=== PATIENT | male | born 1965 | race Caucasian/White ===

== ENCOUNTER → 2020-07-09 06:56 | Outpatient (CLI) | payer OTHER, SELFPAY ==
--- NOTE | ~2020-07-09 | XR_ITS ---
XR cervical spine 4-5V 07/09/2020 07:18 Indication: Neck pain Procedure: 5 views of the cervical spine Comparison: No prior studies for comparison. Findings: There is straightening of cervical lordosis. There is mild disc narrowing and endplate dege nerative change at C5-6. No prevertebral soft tissue abnormality. There is mild multilevel uncinate h ypertrophy. Odontoid process within normal limits. Impression: 1: Mild cervical spondylosis. Reviewed, dictated and finalized at location A. RNED CASE INSPECTOR Impression: 1: Mild cervical spondylosis.
== END ==
PROVIDERS: PCP Nurse Practitioner; Visit Provider Nurse Practitioner
DX: M54.9 Dorsalgia, unspecified (principal); M47.812 Spondylosis without myelopathy or radiculopathy, cervical region
CPT/HCPCS: 72050

== ENCOUNTER 2021-05-21 12:12 | Emergency (ER) | payer OTHER, SELFPAY ==
--- NOTE | ~2021-05-21 | CT_ITS ---
EXAMINATION: CT abdomen pelvis w con EXAM DATE: 05/21/2021 14:28 INDICATION: Right lower quadrant pain. TECHNIQUE: Spiral CT of the abdomen and pelvis was performed following intravenous injection of 100 m L Omnipaque 350. Axial, coronal and sagittal images of the abdomen and pelvis were reviewed. The do se-length product (DLP) for this examination was 1653.44 mGy-cm. The exposure was tailored according to patient size (auto mA exposure control), and iterative reconstruction (ASIR) was used as addition al dose reduction technique. Comparison is made to prior examination from 05/22/2014. FINDINGS: The liver, spleen, adrenal glands and pancreas are unremarkable. Gallbladder is unremarkab le. No biliary obstruction. Portal and splenic veins are patent. Kidneys enhance symmetrically. T here is no hydronephrosis. Small bilateral inguinal fat-containing hernias. The prostate is unremark able. The bladder is unremarkable. There is no retroperitoneal or pelvic lymphadenopathy. The appendix is normal. The stomach and small bowel are unremarkable. There is expected amount of c olonic stool. No free intraperitoneal gas. The heart is normal in size. There are no pericardial or pleural effusions. The lung bases are unremarkable. There are no osteoblastic or osteolytic les ions identified. IMPRESSION: 1. No acute intra-abdominal findings. 2. Small inguinal fat-containing hernias. Reviewed, dictated and finalized at location A. SNAKER
[2021-05-21 12:14] VITALS: BP 132/85; PULSE 94; RESP 20; TEMP 36.6; O2SAT 98
[2021-05-21 13:33] LABS: Alanine Aminotransferase 23 U/L (4-50); Albumin Level 4.6 g/dL (3.5-5.1); Alkaline Phosphatase 73 U/L (38-126); Anion Gap 6 mmol/L (8-16); Aspartate Amino Transferase 22 U/L (17-59); Basophils Absolute Auto 0.1 K/mm3 (0.0-0.1); Basophils Percent Auto 0.5 % (0.2-1.2); Bilirubin,Total 0.7 mg/dL (0.2-1.3); Blood Urea Nitrogen 18 mg/dL (9-20); Calcium 9.4 mg/dL (8.4-10.2); Carbon Dioxide 30 mmol/L (22-30); Chloride 103 mmol/L (98-107); Eosinophils Absolute Auto 0.2 K/mm3 (0-0.3); Eosinophils Percent Auto 2.1 % (0-4.4); Estimated CRCL calculation 109 ml/min; Estimated Glomerular Filt Rate > 60; Glucose 98 mg/dL (65-110); Hemoglobin 19.7 g/dL (14.0-18.0); Immature Granulocyte Absolute 0.03 K/mm3 (0.00-0.031); Immature Granulocyte Percent A 0.3 % (0-0.5); Lipase 86 U/L (23-300); Lymphocytes Absolute Auto 2.66 K/mm3 (0.9-3.2); Lymphocytes Percent Auto 25.3 % (18.3-44.2); Mean Corpuscular HGB Conc 34.6 g/dl (32-36); Mean Corpuscular Hemoglobin 31.5 pg (26-34); Mean Corpuscular Volume 91.1 fl (80-100); Monocytes Absolute Auto 0.7 K/mm3 (0.1-0.6); Neutrophils Absolute Auto 6.8 K/mm3 (1.3-6.7); Neutrophils Percent Auto 64.8 % (45.5-73.1); Platelet Count Result 153 k/mm3 (150-375); Potassium 4.9 mmol/L (3.4-5.0); Red Blood Count 6.26 M/mm3 (4.6-6.20); Red Cell Distribution Width 13.3 % (11.5-14.5); Sodium 139 mmol/L (137-145); White Blood Count 10.5 K/mm3 (4.5-10.0)
[2021-05-21 13:48] LABS: Add Urine Microscopic? YES; Appearance Urine Clear (Clear); Bilirubin Urine Negative (Negative); Blood Urine Negative (Negative); Color Urine Yellow (Yellow); Glucose Urine UA Negative (Negative); Ketones Urine Negative (Negative); Leukocyte Esterase Ur Negative LEU/UL (Negative); Mucus Urine Rare /lpf; Nitrate Urine Negative (Negative); Protein Urine Negative (Negative); Specific Grav Ur 1.027 (1.001-1.035); Squamous Epithelial Cell Urine Rare /hpf (Few); Urobilinogen Urine Negative mg/dL (<2.0); WBC Urine 0-3 /hpf
--- NOTE | 2021-05-21 13:58 | ED.ABDPAIN ---
HPI - Abdominal Pain General Chief Complaint: Abdominal Pain Stated Complaint: lower right abd pain Time Seen by Provider: 05/21/21 13:57 Source: patient Mode of arrival: ambulatory Limitations: no limitations History of Present Illness HPI narrative: Patient is a 56-year-old male complaining of right lower quadrant pain, 6 out of 10, intermittent, nonradiating started approximately 2 weeks ago. Patient denies any chest pain, shortness of breath, nausea, vomiting, diarrhea, urinary symptoms, fever or chills. Related Data Home Medications Medication Instructions Recorded Confirmed lisinopril 40 mg tablet 40 mg PO DAILY 07/15/20 simvastatin 10 mg tablet 10 mg PO DAILY 07/15/20 Allergies Allergy/AdvReac Type Severity Reaction Status Date / Time No Known Allergies Allergy Mild Verified 05/21/21 13:28 Review of Systems Review of Systems: All systems reviewed & are unremarkable except as noted in HPI and below Constitutional: Constitutional: Denies body ache(s), Denies chills, Denies excessive sweating, Denies fatigue, Denies fever(s), Denies headache(s), Denies lethargy, Denies malaise, Denies weakness and Denies weight loss Eyes: Eyes: Denies blurry vision, Denies change in vision and Denies loss of vision ENT: Denies dizziness, Denies ear discharge, Denies headache(s), Denies lip swelling, Denies epistaxis, Denies nasal congestion, Denies neck pain, Denies throat swelling and Denies tongue swelling Cardiovascular: Cardiovascular: Denies chest pain, Denies chest pain at rest, Denies chest pain with activity, Denies diaphoresis, Denies rapid heart rate, Denies edema, Denies irregular heart rhythm, Denies lightheadedness, Denies palpitations, Denies dyspnea and Denies dyspnea on exertion Respiratory: Respiratory: Denies chest congestion, Denies cough, Denies hemoptysis, Denies dyspnea and Denies dyspnea on exertion Gastrointestinal: Gastrointestinal: Denies melena, Denies hematochezia, Denies diarrhea, Denies nausea, Denies vomiting and Denies hematemesis Musculoskeletal: Musculoskeletal: Denies abnormal gait, Denies deformity, Denies joint swelling, Denies limited range of motion, Denies neck pain and Denies numbness Neurologic: Denies Abnormal speech present, Denies abnormal gait, Denies confusion, Denies dizziness, Denies headache(s), Denies focal weakness, Denies loss of vision, Denies numbness, Denies Other visual disturbances, Denies Sensory deficit (Neuro) and Denies weakness Psychiatric: Psychiatric: Denies confusion, Denies depression, Denies auditory hallucinations, Denies homicidal ideation and Denies suicidal ideation Endocrine: Endocrine: Denies cold intolerance, Denies excessive sweating, Denies fatigue, Denies heat intolerance and Denies palpitations Hematologic/Lymphatic: Hematologic/Lymphatic: Denies easy bleeding and Denies easy bruising Allergic/Immunologic: Allergic/Immunologic: Denies lip swelling, Denies throat swelling and Denies tongue swelling PMFSH Family History Family History (System 07/14/20 @ 08:51 by Yvrose Trinidad) Mother Hypertension Family history of diabetes mellitus in first degree relative Father Hypertension Cerebrovascular accident Other Asthma Family history of cardiovascular disease Social History Social History Smoking status: Never smoker Alcohol intake: never Comments Past medical history: Hypertension, hyperlipidemia Social history: Non-smoker no EtOH or drug use Exam Const: General: cooperative, healthy appearing, comfortable, no acute distress, well developed, alert and awake; No confusion Orientation/consciousness: oriented to person, oriented to place, oriented to time, patient oriented x3 and No confusion Limitations: no limitations HENMT: Head: normal to inspection, normocephalic and atraumatic Ears: hearing grossly normal bilaterally, TM normal on the right and TM normal on the left Gene
--- NOTE | 2021-05-21 14:20 | PC.NURSE ---
Pt to CT.
--- NOTE | 2021-05-21 14:29 | PC.NURSE ---
Pt returned from CT. No change in pt condition noted.
--- NOTE | 2021-05-21 14:56 | PC.NURSE ---
Dr. Villafana at bedside for pt assessment.
[2021-05-21] MEDS: KETOROLAC 30 MG/ML VIAL (*BKC) IV PUSH (15:53)
[2021-05-21 16:45] VITALS: BP 134/99; PULSE 95; RESP 16; TEMP 36.6; O2SAT 95
== END 2021-05-21 16:46 | disposition home or self-care (01) ==
PROVIDERS: Emergency Provider Emergency Medicine; PCP Family Medicine
DX: R10.31 Right lower quadrant pain (principal); I10 Essential (primary) hypertension; E78.5 Hyperlipidemia, unspecified; K40.90 Unilateral inguinal hernia, without obstruction or gangrene, not specified as recurrent
CPT/HCPCS: 36415; 74177; 80053; 81001; 83690; 85025; 96374; 99284; J1885; Q9967

== ENCOUNTER 2021-09-02 16:28 | Emergency (ER) | payer OTHER, SELFPAY ==
--- NOTE | ~2021-09-02 | XR_ITS ---
EXAMINATION: XR chest 2V 09/02/2021 17:15 INDICATION: Chest pain and shortness of breath PROCEDURE: 2 view chest COMPARISON: No prior studies for comparison. FINDINGS: The lungs are clear. The cardiomediastinal silhouette is within normal limits. There are no pleural effusions. There is no pneumothorax suspected. IMPRESSION: 1: NO ACUTE CARDIOPULMONARY DISEASE. Reviewed, dictated and finalized at location A. TER ADVOCATE
--- NOTE | 2021-09-02 16:29 | ECG_ITS ---
Measurements Intervals [place] Rate: 91 P: 12 [place]: 181 QRS: -14 QRSD: 92 T: 14 QT: 317 QTc: 390 Interpretive Statements SINUS RHYTHM MINIMAL VOLTAGE CRITERIA FOR LVH, CONSIDER NORMAL VARIANT [MEETS CRITERIA IN ONE OF: R(aVL), S(V1), R(V5), R(V5/V6)+S(V1)] NO PREVIOUS ECG AVAILABLE FOR COMPARISON Borderline ECG Electronically Signed On 09-03-2021 14:18:03 EAR MUFF ASSEMBLER by aRghu Ramos M.D.
[2021-09-02 16:34] VITALS: BP 159/109; PULSE 93; RESP 18; TEMP 36.8; O2SAT 99
[2021-09-02 16:44] VITALS: PULSE 90; O2SAT 97
[2021-09-02 16:52] LABS: Basophils Percent Auto 0.3 % (0.2-1.2); Eosinophils Absolute Auto 0.2 K/mm3 (0-0.3); Hematocrit 53.5 % (42.0-52.0); Hemoglobin 18.6 g/dL (14.0-18.0); Immature Granulocyte Absolute 0.04 K/mm3 (0.00-0.031); Immature Granulocyte Percent A 0.4 % (0-0.5); Immature Platelet Fraction Pct 4.4 % (0.9-11.2); Lymphocytes Percent Auto 23.7 % (18.3-44.2); Mean Corpuscular HGB Conc 34.8 g/dl (32-36); Mean Corpuscular Hemoglobin 32.1 pg (26-34); Mean Corpuscular Volume 92.2 fl (80-100); Mean Platelet Volume 10.2 fl (7.4-10.4); Monocytes Absolute Auto 0.7 K/mm3 (0.1-0.6); Monocytes Percent Auto 7.1 % (2.6-8.5); Neutrophils Absolute Auto 6.8 K/mm3 (1.3-6.7); Neutrophils Percent Auto 66.5 % (45.5-73.1); Platelet Count Result 143 k/mm3 (150-375); Red Cell Distribution Width 13.9 % (11.5-14.5); White Blood Count 10.1 K/mm3 (4.5-10.0)
[2021-09-02 17:00] LABS: Alanine Aminotransferase 28 U/L (4-50); Albumin Level 4.5 g/dL (3.5-5.1); Alkaline Phosphatase 69 U/L (38-126); Anion Gap 7 mmol/L (8-16); Aspartate Amino Transferase 27 U/L (17-59); Bilirubin,Total 0.7 mg/dL (0.2-1.3); Blood Urea Nitrogen 17 mg/dL (9-20); Calcium 9.2 mg/dL (8.4-10.2); Carbon Dioxide 26 mmol/L (22-30); Chloride 106 mmol/L (98-107); Estimated CRCL calculation 121 ml/min; Estimated Glomerular Filt Rate > 60; Glucose 89 mg/dL (65-110); INR 1.1; Lipase 80 U/L (23-300); Partial Thromboplastin Time 27.3 SECONDS (22.3-36.8); Potassium 4.7 mmol/L (3.4-5.0); Prothrombin Time 13.5 Seconds (11.1-14.7); Sodium 139 mmol/L (137-145)
--- NOTE | 2021-09-02 17:10 | ED.CHESTPAIN ---
HPI - Chest Pain General Chief Complaint: Chest Pain <Nichol Charles PA-C - Last Filed: 09/02/21 21:25> Stated Complaint: Chest pain <Nichol Charles PA-C - Last Filed: 09/02/21 21:25> Time Seen by Provider: 09/02/21 16:57 <Nichol Charles PA-C - Last Filed: 09/02/21 21:25> Source: patient <LESA Winters Last Filed: 09/02/21 21:25> Mode of arrival: ambulatory <LESA Winters Last Filed: 09/02/21 21:25> Limitations: no limitations <Nichol Charles PA-C - Last Filed: 09/02/21 21:25> History of Present Illness HPI narrative: Patient is a 56-year-old male, with a past medical history of hypertension, hyperlipidemia, asthma, and sleep apnea, who presents to the ED with complaints of right upper chest pain. 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 He has not had any sharp pains since then, but reports feeling tight his upper chest bilaterally currently in the ED. 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 Patient denied having any diaphoresis, nausea, shortness of breath associated with the pain. He does mention that he occasionally has difficulty catching his breath due to his asthma. He uses his rescue inhaler when needed. Patient had a stress test 6-7 years ago, which he reports was normal. Patient denies any fever, chills, vomiting, abdominal pain, headache, back pain, BLE edema, or recent infectious symptoms. Patient took ASA prior to arrival. He has a history of erectile dysfunction and took Cialis yesterday. He was not given nitro in the ED. <Nichol Charles PA-C - Last Filed: 09/02/21 21:25> Related Data Home Medications: Home Medications Medication Instructions Recorded Confirmed lisinopril 40 mg tablet 40 mg PO DAILY 07/15/20 simvastatin 10 mg tablet 10 mg PO DAILY 07/15/20 pravastatin 20 mg PO DAILY 09/02/21 tadalafil mg 09/02/21 <Nichol Charles PA-C - Last Filed: 09/02/21 21:25> Allergies/Adverse Reactions: Allergies Allergy/AdvReac Type Severity Reaction Status Date / Time No Known Allergies Allergy Mild Verified 05/21/21 13:28 <Nichol Charles PA-C - Last Filed: 09/02/21 21:25> Review of Systems Review of Systems: CONSTITUTIONAL: Denies fever, chills, or sweats. ENT: Denies rhinorrhea, congestion, sore throat, or otalgia. CARDIOVASCULAR: Reports sharp right upper chest pain and tightness in bilateral upper chest. Denies palpitations or edema. RESPIRATORY: Denies cough or dyspnea. GASTROINTESTINAL: Denies abdominal pain, nausea, vomiting, or diarrhea. MUSCULOSKELETAL: Denies back pain, joint pain, or myalgia. NEUROLOGIC: Denies headache, numbness, or weakness. <Nichol Charles PA-C - Last Filed: 09/02/21 21:25> All systems reviewed & are unremarkable except as noted in HPI and below <Nichol Charles PA-C - Last Filed: 09/02/21 21:25> [facility] Past Medical History Medical History: Medical History Asthma Erectile dysfunction Hyperlipidemia Hypertension Sleep apnea with use of continuous positive airway pressure (CPAP) <Nichol Charles PA-C - Last Filed: 09/02/21 21:25> Surgical History Surgical History: Surgical History H/O knee surgery <Nichol Charles PA-C - Last Filed: 09/02/21 21:25> Family History Family History: Family History (System 07/14/20 @ 08:51 by Yvrose Trinidad) Mother Hypertension Family history of diabetes mellitus in first degree relative Father Hypertension Cerebrovascular accident Other Asthma Family history of cardiovascular disease <Nichol Charles PA-C - Last Filed: 09/02/21 21:25> Social History Social History: Social History (Reviewed 09/02/21 @ 17:16 by Nelly
[2021-09-02 17:12] LABS: Troponin I < 0.012 ng/mL (0.000-0.034)
[2021-09-02 17:58] VITALS: BP 155/94; PULSE 90; RESP 24; O2SAT 99
[2021-09-02 19:59] VITALS: BP 143/104; PULSE 85; RESP 18; O2SAT 99
[2021-09-02 20:04] LABS: Troponin I < 0.012 ng/mL (0.000-0.034)
[2021-09-02 20:57] VITALS: BP 151/91; PULSE 95; RESP 18; O2SAT 98
== END 2021-09-02 20:58 | disposition home or self-care (01) ==
PROVIDERS: General Practice; Emergency Provider Emergency Medicine
DX: R07.9 Chest pain, unspecified (principal); G47.30 Sleep apnea, unspecified; I10 Essential (primary) hypertension; E78.5 Hyperlipidemia, unspecified; J45.909 Unspecified asthma, uncomplicated
CPT/HCPCS: 36415; 71046; 80053; 83690; 84484; 85025; 85055; 85610; 85730; 93005; 99284

== ENCOUNTER 2022-10-28 13:13 | Emergency (ER) | payer OTHER, SELFPAY ==
[2022-10-28] VITALS (11 sets, daily range): BP systolic 139–170; BP diastolic 83–106; PULSE 83–96; RESP 14–20; TEMP 36.3; O2SAT 95–99
--- NOTE | ~2022-10-28 | CT_ITS ---
EXAMINATION: CT brain wo con DATE: 10/28/2022 14:45 INDICATION: Headache TECHNIQUE: Computed tomography (CT) of the head was performed without intravenous contrast. Sagittal and coronal reconstructions were performed. The mA was adjusted according to patient size. Iterative reconstruction technique was employed. The dose-length product was 605.33 mGy-cm. COMPARISON: None FINDINGS: No acute intracranial hemorrhage, acute infarction or abnormal extra axial fluid collection. Ventricl es are normal and symmetric. No mass/mass effect. Mucosal thickening in the right maxillary sinus. Th e orbits, paranasal sinuses and mastoid air cells are normal. IMPRESSION: 1. Normal brain. No acute intracranial process. Reviewed, dictated and finalized at location A.
--- NOTE | 2022-10-28 13:26 | ECG_ITS ---
Measurements Intervals [place] Rate: 85 P: 5 [place]: 181 QRS: -19 QRSD: 99 T: 13 QT: 335 QTc: 399 Interpretive Statements SINUS RHYTHM MODERATE VOLTAGE CRITERIA FOR LVH, CONSIDER NORMAL VARIANT [MEETS CRITERIA IN ONE OF: R(aVL), S(V1), R(V5), R(V5/V6)+S(V1)] COMPARED TO ECG 09/02/2021 16:36:06 NO SIGNIFICANT CHANGES Electronically Signed On 10-29-2022 13:34:08 CDT by Anil Cronin M.D.
[2022-10-28 13:53] LABS: Basophils Percent Auto 0.3 % (0.2-1.2); Eosinophils Absolute Auto 0.2 K/mm3 (0-0.3); Hematocrit 52.7 % (42.0-52.0); Hemoglobin 18.1 g/dL (14.0-18.0); Immature Granulocyte Absolute 0.02 K/mm3 (0.00-0.031); Immature Granulocyte Percent A 0.2 % (0-0.5); Lymphocytes Percent Auto 23.1 % (18.3-44.2); Mean Corpuscular HGB Conc 34.3 g/dl (32-36); Mean Corpuscular Hemoglobin 31.2 pg (26-34); Mean Corpuscular Volume 90.9 fl (80-100); Mean Platelet Volume 10.4 fl (7.4-10.4); Monocytes Absolute Auto 0.8 K/mm3 (0.1-0.6); Neutrophils Absolute Auto 5.7 K/mm3 (1.3-6.7); Neutrophils Percent Auto 65.4 % (45.5-73.1); Platelet Count Result 127 k/mm3 (150-375); Red Cell Distribution Width 13.1 % (11.5-14.5); White Blood Count 8.7 K/mm3 (4.5-10.0)
[2022-10-28] MEDS: hydrALAZINE HCL 20 MG/ML VIAL 10 MG IV PUSH (14:15)
[2022-10-28 15:17] LABS: Alanine Aminotransferase 27 U/L (6-50); Albumin Level 4.3 g/dL (3.5-5.1); Alkaline Phosphatase 51 U/L (38-126); Anion Gap 7 mmol/L (8-16); Aspartate Amino Transferase 19 U/L (17-59); Bilirubin,Total 0.6 mg/dL (0.2-1.3); Blood Urea Nitrogen 16 mg/dL (9-20); Calcium 8.7 mg/dL (8.4-10.2); Carbon Dioxide 24 mmol/L (22-30); Chloride 107 mmol/L (98-107); Estimated CRCL calculation 139 ml/min; Estimated Glomerular Filt Rate > 60; Glucose 85 mg/dL (65-110); Potassium 4.1 mmol/L (3.4-5.0); Sodium 138 mmol/L (137-145)
--- NOTE | 2022-10-28 15:58 | ED.GENADULT ---
HPI - General Adult General Chief complaint: Recheck/Abnormal Lab/Rx Stated complaint: hypertension Time Seen by Provider: 10/28/22 13:50 History of Present Illness HPI narrative: 57-year-old male presented the emergency department for evaluation of high blood pressure. Patient states he has been irbesartan for the last 2 months. Patient had been taking lisinopril but had developed a cough from this. Patient went to a clinic for evaluation and was referred to the emergency department due to elevated blood pressure. Related Data Home Medications Medication Instructions Recorded Confirmed lisinopril 40 mg tablet 40 mg PO DAILY 07/15/20 06/29/22 pravastatin 20 mg tablet 20 mg PO DAILY 09/02/21 06/29/22 tadalafil 20 mg tablet mg 09/02/21 06/29/22 albuterol sulfate 90 mcg/actuation 1 puff inhalation Q4H PRN 06/29/22 06/29/22 aerosol inhaler bupropion HCl 300 mg 24 hr tablet, 300 mg PO QAM 06/29/22 06/29/22 extended release buspirone 10 mg tablet 10 mg PO BID 06/29/22 06/29/22 fenofibrate 50 mg capsule 50 mg PO DAILY 06/29/22 06/29/22 fluticasone propionate 115 2 puff inhalation Q12H 06/29/22 06/29/22 mcg-salmeterol 21 mcg/actuation HFA inhaler (Advair HFA) Allergies Allergy/AdvReac Type Severity Reaction Status Date / Time No Known Allergies Allergy Mild Verified 06/29/22 08:48 Review of Systems Review of Systems: All systems reviewed & are unremarkable except as noted in HPI and below PMFSH Past Medical History Medical History Asthma Erectile dysfunction Hyperlipidemia Hypertension Sleep apnea with use of continuous positive airway pressure (CPAP) Surgical History Surgical History H/O knee surgery Family History Family History Mother Hypertension Family history of diabetes mellitus in first degree relative Father Hypertension Cerebrovascular accident Other Asthma Family history of cardiovascular disease Social History Social History (Updated 06/29/22 @ 08:52 by Emily Gomez CMA) Smoking status: Never smoker Alcohol intake: never Lack of Transportation: No Lack of Food: Never True Current Housing: I Have Housing Concerned About Future Housing: No Difficulty Paying Gas/Electric Bills: No Difficulty Paying for Meds: No Currently Unemployed: No Education: High School Diploma/GED Difficulty w/ Childcare or Family Care: No Exam Narrative: APPEARANCE: Well appearing, no pain, no distress, well-nourished. HEAD: normocephalic, atraumatic. EYES: PERRLA/EOMI, conjunctivae clear. NOSE: Normal no drainage NECK: Supple. No adenopathy, no masses. RESPIRATORY: Airway patent, respirations nonlabored. Clear to auscultation bilaterally, no rales, rhonchi, wheezing. CARDIOVASCULAR: Regular rate and rhythm without murmurs rubs or gallops. ABDOMINAL: Soft, nontender, nondistended, normal bowel sounds MUSCULOSKELETAL: Moves all extremities. Strength/ROM intact, No edema, No calf tenderness. NEURO: Alert. Cranial nerves II through XII intact. Grossly intact SKIN: Warm, dry. Normal Color PSYCHIATRIC: Anxiety Course Course Emergency Course: 57-year-old male presented the ED for evaluation of hypertension. Patient was treated with IV hydralazine and did have an improvement of his blood pressure. Patient reports he no longer has headache. Patient denying any chest pain or shortness of breath. Patient was afebrile with no leukocytosis. Patient's electrolytes are within normal limits. Patient's head CT was negative. Patient's EKG showed no evidence of acute STEMI. Patient was encouraged of close follow-up with his primary care physician as scheduled on Sunday. Patient was also encouraged to follow a low-sodium diet and to avoid alcohol. Patient and family were comfortable with the plan for discha
== END 2022-10-28 16:23 | disposition home or self-care (01) ==
PROVIDERS: Emergency Provider Emergency Medicine; PCP Family Medicine Sports Medicine
DX: I10 Essential (primary) hypertension (principal); R51.9 Headache, unspecified; J45.909 Unspecified asthma, uncomplicated; E78.5 Hyperlipidemia, unspecified; G47.30 Sleep apnea, unspecified
CPT/HCPCS: 36415; 70450; 80053; 85025; 85055; 93005; 96374; 99284; J0360

== ENCOUNTER 2022-10-29 13:25 | Emergency (ER) | payer OTHER, SELFPAY ==
[2022-10-29] VITALS (18 sets, daily range): BP systolic 137–154; BP diastolic 87–102; PULSE 81–96; RESP 16–21; TEMP 36.5; O2SAT 92–100
--- NOTE | 2022-10-29 13:43 | ED.GENADULT ---
HPI - General Adult General Chief complaint: Recheck/Abnormal Lab/Rx Stated complaint: elevated bp Time Seen by Provider: 10/29/22 13:33 History of Present Illness HPI narrative: 57-year-old male with history of hypertension return to the emergency department for evaluation of increased anxiety and elevated blood pressure at home. Patient was evaluated in the emergency department yesterday and states he had increased anxiety and had been checking his blood pressure frequently over the course of the night. Patient does have follow-up with his primary care physician tomorrow. Patient reports he has had worsening anxiety. Patient's anxiety was treated in the emergency department. Related Data Home Medications Medication Instructions Recorded Confirmed lisinopril 40 mg tablet 40 mg PO DAILY 07/15/20 06/29/22 pravastatin 20 mg tablet 20 mg PO DAILY 09/02/21 06/29/22 tadalafil 20 mg tablet mg 09/02/21 06/29/22 albuterol sulfate 90 mcg/actuation 1 puff inhalation Q4H PRN 06/29/22 06/29/22 aerosol inhaler bupropion HCl 300 mg 24 hr tablet, 300 mg PO QAM 06/29/22 06/29/22 extended release buspirone 10 mg tablet 10 mg PO BID 06/29/22 06/29/22 fenofibrate 50 mg capsule 50 mg PO DAILY 06/29/22 06/29/22 fluticasone propionate 115 2 puff inhalation Q12H 06/29/22 06/29/22 mcg-salmeterol 21 mcg/actuation HFA inhaler (Advair HFA) Allergies Allergy/AdvReac Type Severity Reaction Status Date / Time No Known Allergies Allergy Mild Verified 10/29/22 13:25 Review of Systems Review of Systems: All systems reviewed & are unremarkable except as noted in HPI and below PMFSH Past Medical History Medical History Asthma Erectile dysfunction Hyperlipidemia Hypertension Sleep apnea with use of continuous positive airway pressure (CPAP) Surgical History Surgical History H/O knee surgery Family History Family History Mother Hypertension Family history of diabetes mellitus in first degree relative Father Hypertension Cerebrovascular accident Other Asthma Family history of cardiovascular disease Social History Social History (Updated 06/29/22 @ 08:52 by Emily Gomez [facility]) Smoking status: Never smoker Alcohol intake: never Lack of Transportation: No Lack of Food: Never True Current Housing: I Have Housing Concerned About Future Housing: No Difficulty Paying Gas/Electric Bills: No Difficulty Paying for Meds: No Currently Unemployed: No Education: High School Diploma/GED Difficulty w/ Childcare or Family Care: No Exam Narrative: APPEARANCE: Anxious appearing HEAD: normocephalic, atraumatic. EYES: PERRLA/EOMI, conjunctivae clear. NOSE: Normal no drainage NECK: Supple. No adenopathy, no masses. RESPIRATORY: Airway patent, respirations nonlabored. Clear to auscultation bilaterally, no rales, rhonchi, wheezing. CARDIOVASCULAR: Regular rate and rhythm without murmurs rubs or gallops. ABDOMINAL: Soft, nontender, nondistended, normal bowel sounds MUSCULOSKELETAL: Moves all extremities. Strength/ROM intact, No edema, No calf tenderness. NEURO: Alert. Cranial nerves II through XII intact. Grossly intact SKIN: Warm, dry. Normal Color PSYCHIATRIC: Very anxious Course Course Emergency Course: 57-year-old male history of hypertension anxiety presents emerged department for evaluation of both. Patient's blood pressure did improve while he was in the ED. Patient was treated with medications for anxiety and states this also did improve. Patient does have follow-up with his primary care physician tomorrow and he was encouraged to discuss both his blood pressure medications and his anxiety medications. Patient states he did have a decrease in his bupropion a few weeks ago and this may be worsening his anxiety. Patient an
--- NOTE | 2022-10-29 13:50 | PC.NURSE ---
Dr. Lozano at bedside to assess pt.
[2022-10-29] MEDS: LORazepam (*CRX) 1 MG TABLET 2 MG PO (14:03)
[2022-10-29] MEDS: KETOROLAC 30 MG/ML VIAL (*BKC) IM (16:49)
== END 2022-10-29 17:37 | disposition home or self-care (01) ==
PROVIDERS: Emergency Provider Emergency Medicine; PCP Family Medicine Sports Medicine
DX: F41.9 Anxiety disorder, unspecified (principal); I10 Essential (primary) hypertension
CPT/HCPCS: 96372; 99283; A9270; J1885

== ENCOUNTER 2023-01-05 11:05 | Outpatient (CLI) | payer OTHER, SELFPAY ==
[2023-01-05 11:25] LABS: Basophils Percent Auto 0.4 % (0.2-1.2); Eosinophils Absolute Auto 0.2 K/mm3 (0-0.3); Eosinophils Percent Auto 2.3 % (0-4.4); Hematocrit 50.5 % (42.0-52.0); Hemoglobin 17.5 g/dL (14.0-18.0); Immature Granulocyte Absolute 0.03 K/mm3 (0.00-0.031); Immature Granulocyte Percent A 0.4 % (0-0.5); Immature Platelet Fraction Pct 3.3 % (0.9-11.2); Lymphocytes Absolute Auto 1.99 K/mm3 (0.9-3.2); Lymphocytes Percent Auto 23.9 % (18.3-44.2); Mean Corpuscular HGB Conc 34.7 g/dl (32-36); Mean Corpuscular Hemoglobin 30.9 pg (26-34); Mean Corpuscular Volume 89.1 fl (80-100); Monocytes Absolute Auto 0.5 K/mm3 (0.1-0.6); Monocytes Percent Auto 6.5 % (2.6-8.5); Neutrophils Absolute Auto 5.5 K/mm3 (1.3-6.7); Neutrophils Percent Auto 66.5 % (45.5-73.1); Platelet Count Result 118 k/mm3 (150-375); Red Blood Count 5.67 M/mm3 (4.6-6.20); Red Cell Distribution Width 13.4 % (11.5-14.5); White Blood Count 8.3 K/mm3 (4.5-10.0)
[2023-01-05 12:24] LABS: Iron 119 ug/dL (49-181)
[2023-01-05 12:28] LABS: Alanine Aminotransferase 28 U/L (6-50); Albumin Level 4.2 g/dL (3.5-5.1); Alkaline Phosphatase 54 U/L (38-126); Anion Gap 6 mmol/L (8-16); Aspartate Amino Transferase 21 U/L (17-59); Bilirubin,Total 0.7 mg/dL (0.2-1.3); Blood Urea Nitrogen 16 mg/dL (9-20); Calcium 8.8 mg/dL (8.4-10.2); Carbon Dioxide 27 mmol/L (22-30); Chloride 107 mmol/L (98-107); Estimated Glomerular Filt Rate > 60; Glucose 120 mg/dL (65-110); Potassium 4.2 mmol/L (3.4-5.0); Sodium 140 mmol/L (137-145)
[2023-01-05 12:33] LABS: Percent Iron Saturation 28 % (20-50)
[2023-01-05 13:33] LABS: Folic Acid 18.8 ng/mL (2.76->20)
[2023-01-08 10:59] LABS: Erythropoietin (EPO) 15.6 mIU/mL (2.6-18.5)
[2023-01-09 12:43] LABS: Testosterone Free 91.2 pg/mL (35.0-155.0); Testosterone Total 339 ng/dL (250-1100)
== END 2023-01-05 11:06 | disposition home or self-care (01) ==
LOC: ANHLAB 11:06
PROVIDERS: PCP Family Medicine Sports Medicine; Visit Provider Internal Medicine Hematology & Oncology
DX: D69.59 Other secondary thrombocytopenia (principal); E34.9 Endocrine disorder, unspecified
CPT/HCPCS: 36415; 80053; 82607; 82668; 82728; 82746; 83540; 83550; 84402; 84403; 85025; 85055

== ENCOUNTER 2023-02-06 07:16 | Outpatient (CLI) | payer OTHER, SELFPAY ==
--- NOTE | ~2023-02-06 | US_ITS ---
EXAMINATION: US abdomen complete DATE: 02/06/2023 08:11 INDICATION: Other secondary thrombocytopenia. TECHNIQUE: Multiple grayscale and Doppler ultrasound images of the abdomen were obtained. COMPARISON: CT abdomen and pelvis 05/21/2021 FINDINGS: The visualized portions of the head and body of the pancreas are normal. The liver is jamil l. There is normal flow in main portal vein. The gallbladder is normal in size. No gallstones or gall bladder wall thickening. There is no sonographic Harper sign. The common duct is normal and measures 6 mm . There is mild splenomegaly measuring 14.2 cm. The kidneys are normal in size. Abdominal aorta is normal in caliber. Inferior vena cava is normal. IMPRESSION: 1. Mild splenomegaly. Reviewed, dictated and finalized at location A. IMPRESSION: 1. Mild splenomegaly.
== END 2023-02-06 07:17 | disposition home or self-care (01) ==
PROVIDERS: PCP Family Medicine Sports Medicine; Visit Provider Internal Medicine Hematology & Oncology
DX: D69.59 Other secondary thrombocytopenia (principal); R16.1 Splenomegaly, not elsewhere classified
CPT/HCPCS: 76700

== ENCOUNTER 2023-03-08 18:20 | Emergency (ER) | payer OTHER, SELFPAY ==
--- NOTE | ~2023-03-08 | XR_ITS ---
EXAMINATION: XR chest 2V DATE: 03/08/2023 18:48 INDICATION: Shortness of breath. Asthma. TECHNIQUE: Frontal and lateral views of the chest were obtained. COMPARISON: Chest 2 views 09/02/2021, CT abdomen and pelvis 01/18/2021 FINDINGS: There is no pneumonia, pleural effusion, or pneumothorax. The heart size is normal. IMPRESSION: 1. No acute cardiopulmonary disease. Reviewed, dictated and finalized at location E.
--- NOTE | 2023-03-08 18:25 | ECG_ITS ---
Measurements Intervals [place] Rate: 87 P: 35 [place]: 178 QRS: -9 QRSD: 94 T: 44 QT: 341 QTc: 411 Interpretive Statements SINUS RHYTHM BORDERLINE ECG COMPARED TO ECG 10/28/2022 13:31:23 NO SIGNIFICANT CHANGES Electronically Signed On 03-08-2023 19:42:44 CDT by Tristen Strong D.O.
[2023-03-08 18:27] VITALS: BP 147/91; PULSE 92; RESP 18; TEMP 37.1; O2SAT 98
[2023-03-08 18:50] LABS: Basophils Percent Auto 0.3 % (0.2-1.2); Eosinophils Absolute Auto 0.2 K/mm3 (0-0.3); Eosinophils Percent Auto 1.4 % (0-4.4); Hematocrit 50.5 % (42.0-52.0); Hemoglobin 17.4 g/dL (14.0-18.0); Immature Granulocyte Absolute 0.04 K/mm3 (0.00-0.031); Immature Granulocyte Percent A 0.3 % (0-0.5); Immature Platelet Fraction Pct 3.6 % (0.9-11.2); Lymphocytes Absolute Auto 2.16 K/mm3 (0.9-3.2); Lymphocytes Percent Auto 17.3 % (18.3-44.2); Mean Corpuscular HGB Conc 34.5 g/dl (32-36); Mean Corpuscular Hemoglobin 31.2 pg (26-34); Mean Corpuscular Volume 90.7 fl (80-100); Mean Platelet Volume 10.3 fl (7.4-10.4); Monocytes Absolute Auto 0.8 K/mm3 (0.1-0.6); Monocytes Percent Auto 6.7 % (2.6-8.5); Neutrophils Absolute Auto 9.2 K/mm3 (1.3-6.7); Platelet Count Result 132 k/mm3 (150-375); Red Blood Count 5.57 M/mm3 (4.6-6.20); Red Cell Distribution Width 13.7 % (11.5-14.5); White Blood Count 12.5 K/mm3 (4.5-10.0)
[2023-03-08 19:08] LABS: Alanine Aminotransferase 24 U/L (6-50); Albumin Level 4.2 g/dL (3.5-5.1); Alkaline Phosphatase 51 U/L (38-126); Anion Gap 10 mmol/L (8-16); Aspartate Amino Transferase 24 U/L (17-59); Bilirubin,Total 0.8 mg/dL (0.2-1.3); Blood Urea Nitrogen 18 mg/dL (9-20); Calcium 8.7 mg/dL (8.4-10.2); Carbon Dioxide 23 mmol/L (22-30); Chloride 108 mmol/L (98-107); Estimated CRCL calculation 107 ml/min; Estimated Glomerular Filt Rate > 60; Glucose 94 mg/dL (65-110); Sodium 141 mmol/L (137-145)
[2023-03-08] MEDS: LORazepam (*CRX) 0.5 MG TABLET PO (21:29)
[2023-03-08 21:31] VITALS: BP 160/94; PULSE 79; RESP 15; O2SAT 95
[2023-03-08 21:55] LABS: Troponin I < 0.012 ng/mL (0.000-0.034)
[2023-03-08 22:15] LABS: Influenza A QL RT-PCR Negative (Negative); Influenza B QL RT-PCR Negative (Negative); RSV RNA, RT-PCR Negative (Negative); SARS-CoV-2 RNA PCR Negative (Negative)
[2023-03-08 22:27] VITALS: BP 132/86; PULSE 78; RESP 15; O2SAT 98
[2023-03-09 00:14] LABS: Troponin I < 0.012 ng/mL (0.000-0.034)
[2023-03-09 01:10] VITALS: BP 136/80; PULSE 86; RESP 15; O2SAT 99
--- NOTE | 2023-03-09 01:22 | ED.GENADULT ---
HPI - General Adult General Chief complaint: Shortness of Breath/Dyspnea Stated complaint: Back pain, sob Time Seen by Provider: 03/08/23 20:31 History of Present Illness HPI narrative: This is a 58-year-old male presenting ED with chief complaint chest pain. The patient says he has been having chest pain for the last several days that he describes as burning pain. It is nonradiating, 3 out 10 intensity and comes and goes. He has had this several times over the last year. There are no exacerbating alleviating factors. Patient says that is associated with occasional shortness of breath. Denies nausea vomiting diaphoresis or exertional component. He denies fever chills abdominal pain or diarrhea. Patient states that he is paranoid and has significant anxiety. Related Data Home Medications Medication Instructions Recorded Confirmed tadalafil 20 mg tablet mg 09/02/21 03/01/23 albuterol sulfate 90 mcg/actuation 1 puff inhalation Q4H PRN 06/29/22 03/01/23 aerosol inhaler bupropion HCl 300 mg 24 hr tablet, 300 mg PO QAM 06/29/22 03/01/23 extended release buspirone 10 mg tablet 10 mg PO BID 06/29/22 03/01/23 amlodipine 5 mg tablet 5 mg PO DAILY 11/22/22 03/01/23 rosuvastatin 20 mg tablet 20 mg PO DAILY 11/22/22 03/01/23 trazodone 50 mg tablet 50 mg PO QHS PRN 11/22/22 03/01/23 Allergies Allergy/AdvReac Type Severity Reaction Status Date / Time No Known Allergies Allergy Mild Verified 03/01/23 08:43 [facility] Past Medical History Medical History Asthma Erectile dysfunction Hyperlipidemia Hypertension Sleep apnea with use of continuous positive airway pressure (CPAP) Surgical History Surgical History H/O knee surgery Family History Family History Mother Hypertension Family history of diabetes mellitus in first degree relative Father Hypertension Cerebrovascular accident Other Asthma Family history of cardiovascular disease Social History Social History (Updated 03/01/23 @ 08:49 by Emily Gomez [facility]) Smoking status: Never smoker Alcohol intake: never Lack of Transportation: No Lack of Food: Never True Current Housing: I Have Housing Concerned About Future Housing: No Difficulty Paying Gas/Electric Bills: No Difficulty Paying for Meds: No Currently Unemployed: No Education: Decline to Answer Difficulty w/ Childcare or Family Care: No Exam Narrative: APPEARANCE: No apparent distress. Head: atraumatic. EYES: EOMI, NOSE: Atraumatic NECK: Trachea midline RESPIRATORY: No increased rate of breathing CTAB CARDIOVASCULAR: RRR, +2 pulses in all extremities ABDOMINAL: Non-distended soft, no guarding rebound MUSCULOSKELETAl: No obvious deformities NEURO: Alert. cranial nerves 2-12 grossly intact, Moving 4/4 extremities SKIN:: Warm, dry. Normal color PSYCHIATRIC: Anxious Course Vital Signs Vital signs: Vital Signs Temperature 98.8 F 03/08/23 18:27 Pulse Rate 92 03/08/23 18:27 Respiratory Rate 18 03/08/23 18:27 Blood Pressure 147/91 H 03/08/23 18:27 Pulse Oximetry 98 03/08/23 18:27 Oxygen Delivery Room Air 03/08/23 18:27 Temperature 98.8 F 03/08/23 18:27 Pulse Rate 86 03/09/23 01:10 Respiratory Rate 15 03/09/23 01:10 Blood Pressure 136/80 03/09/23 01:10 Pulse Oximetry 99 03/09/23 01:10 Oxygen Delivery Room Air 03/08/23 18:[address] [facility] Narrative Medical decision making narrative: -Course: 58-year-old male presenting with chest pain. Workup was negative. patient was given 0.5 mg Ativan. Patient's symptoms have improved he is asking to go home. Patient was discharged with return precautions. -DDX includes but is not limited to: Anxiety, ACS, chest wall pain, GERD/gastritis, esophagitis, pneumonia, viral syndrome -Co-morbid
== END 2023-03-09 01:11 | disposition home or self-care (01) ==
PROVIDERS: Student in an Organized Health Care Education/Training Program; Emergency Provider Emergency Medicine; PCP Family Medicine Sports Medicine
DX: R07.9 Chest pain, unspecified (principal); F41.9 Anxiety disorder, unspecified; Z20.822 Contact with and (suspected) exposure to COVID-19; J45.909 Unspecified asthma, uncomplicated; E78.5 Hyperlipidemia, unspecified; I10 Essential (primary) hypertension; G47.30 Sleep apnea, unspecified
CPT/HCPCS: 36415; 71046; 80053; 84484; 85025; 85055; 87637; 93005; 99284; A9270

== ENCOUNTER 2025-06-04 20:18 | Emergency (ER) | payer OTHER, SELFPAY ==
--- NOTE | ~2025-06-04 | XR_ITS ---
Examination: XR chest 2V Clinical History: shortness of breath Comparison: 03/08/2023 Technique: PA and Lateral Findings: Cardiomediastinal silhouette normal size and configuration. Lungs clear. No acute bony abnormality. IMPRESSION: 1. No acute cardiopulmonary findings. Reviewed, dictated and finalized at location R. CH ORGANIST
--- NOTE | ~2025-06-04 | CT_ITS ---
EXAMINATION: CTA brain carotid DATE: 06/05/2025 02:05 INDICATION: Dizziness. Lightheadedness. TECHNIQUE: Computed tomographic angiography (CTA) of the head was performed with 100 mL Omnipaque-350 intravenous contrast. CTA of the neck was performed with intravenous contrast. Automated exposure control and iterative reconstruction technique were employed. The dose-length product was 1219.41 mGy-cm. Maximum intensity projection and volume rendered 3D-reconstructions were created by the technologist on a separate workstation. COMPARISON: Head CT 06/04/2025 FINDINGS: HEAD CTA: There are scattered areas of low attenuation in the cerebral white matter. There is no intracranial hemorrhage, acute infarction, or abnormal intracranial mass lesion. The ventricles are normal in size. The orbits are normal. There is mucosal thickening in the paranasal sinuses. Right maxillary sinus is small with thickened wayne, consistent with chronic sinusitis. The mastoid air cells are normal. The vertebral arteries are codominant. There is no significant stenosis of basilar artery or the posterior cerebral arteries. There is no significant stenosis of intracranial internal carotid arteries or anterior or middle cerebral arteries. Anterior communicating artery is normal. Posterior communicating arteries are not identified. There is no aneurysm. NECK CTA: There are no pathologically enlarged lymph nodes. There is no significant stenosis of the vertebral arteries. There is no visible plaque in the proximal internal carotid arteries. There is 0% stenosis of the proximal right internal carotid artery relative to normal distal artery lumen diameter (NASCET criteria). There is 0% stenosis of the proximal left internal carotid artery relative to normal distal artery lumen diameter. There is severe cervical spondylosis. IMPRESSION: 1. Mild nonspecific cerebral white matter disease, which likely represents chronic small vessel ischemic disease. 2. No aneurysm or significant intracranial canal stenosis. 3. 0% stenosis of the proximal internal carotid arteries relative to normal distal artery lumen diameters (NASCET criteria). Reviewed, dictated and finalized at location E. PILOT IMPRESSION: 1. Mild nonspecific cerebral white matter disease, which likely represents airplane pilot supervisor rodríguez small vessel ischemic disease. 2. No aneurysm or significant intracranial canal stenosis. 3. 0% stenosis of the proximal internal carotid arteries relative to normal dis felicia artery lumen diameters (NASCET criteria).
--- NOTE | ~2025-06-04 | CT_ITS ---
CT HEAD NON-CONTRAST Clinical History: dizziness, visual changes, light-headed Comparison: CT brain 10/28/2022 Technique: Unenhanced axial images skull base to vertex Coronal, sagittal reformats CT images acquired with automatic exposure control for dose reduction DLP: 681 mGy-cm Findings: Mild white matter changes, typically chronic microvascular ischemic disease. Sulci, ventricles: Unremarkable. No intracerebral hemorrhage. No evidence acute territorial infarct. No mass effect, midline shift. Bony calvarium intact. Visualized paranasal sinuses: Mild disease right maxillary. Mastoid air cells: Clear. IMPRESSION: 1. No acute intracranial findings. Reviewed, dictated and finalized at location R. RAL CAR DRIVER
[2025-06-04 20:29] VITALS: BP 161/87; PULSE 77; RESP 22; TEMP 36.8; O2SAT 99
[2025-06-04 21:47] VITALS: BP 140/91; PULSE 72; RESP 20; O2SAT 99
--- NOTE | 2025-06-04 23:14 | ED_ITS ---
HPI - Headache General Chief Complaint: Headache <Sarah Estrada APRN - Last Filed: 06/05/25 04:13> Stated Complaint: high blood pressure <Sarah Estrada APRN - Last Filed: 06/05/25 04:13> Time Seen by Provider: 06/04/25 23:00 <Sarah Estrada APRN - Last Filed: 06/05/25 04:13> History of Present Illness HPI Narrative: Patient is 60-year-old male who presents to the ER with concerns of elevated blood pressure, lightheadedness, shortness of breath, dizziness, and visual changes. He reports his symptoms started a couple of days ago. Patient denies any headache, lower extremity swelling, or chest pain. He endorses a history of sleep apnea, asthma, testosterone shots, and high blood pressure. < Sarah Estrada APRN - Last Filed: 06/05/25 04:13> Related Data Home Medications: Home Medications ?Medication ?Instructions ?Recorded ?Confirmed ?Last Taken ?Type tadalafil 20 mg tablet mg 09/02/21 01/12/25 Unknown History albuterol sulfate 90 mcg/actuation 1 puff inhalation Q 4H PRN 06/29/22 01/12/25 Unknown History aerosol inhaler bupropion HCl 300 mg 24 hr tablet, 300 mg PO QAM 06/2901/12/25 Unknown History extended release buspirone 10 mg tablet 10 mg PO BID 06/29/22 Unknown History rosuvastatin 20 mg tablet 20 mg PO DAILY 11/22/2212/30 Unknown History trazodone 50 mg tablet 50 mg PO QHS PRN 11/22/22 Unknown History losartan 100 mg tablet 100 mg PO DAILY 05/31/23 Unknown History <Sarah Estrada APRN - Last Filed: 06/05/25 04:13> Allergies/Adverse Reactions: Allergies Allergy/AdvReac Type Severity Reaction Status Date / Time No Known Allergies Allergy Mild Verified 01/12/25 09:08 <Sarah Estrada APRN - Last Filed: 06/05/25 04:13> Review of Systems 2 Review of Systems: All systems reviewed & are unremarkable except as noted in HPI and below <Sarah Estrada APRN - Last Filed: 06/05/25 04:13> [facility] Past Medical History Medical History: Medical History Erectile dysfunction Hyperlipidemia Hypertension Sleep apnea with use of continuous positive airway pressure (CPAP) Asthma <Sarah Estrada APRN - Last Filed: 06/05/25 04:13> Surgical History Surgical History: Surgical History H/O knee surgery <Sarah Estrada APRN - Last Filed: 06/05/25 04:13> Family History Family History: Family History Mother Hypertension Family history of diabetes mellitus in first degree relative Father Hypertension Cerebrovascular accident Other Asthma Family history of cardiovascular disease <Sarah Estrada APRN - Last Filed: 06/05/25 04:13> Social History Social History: Social History Social History: Caffeine-daily Smoking status: Never smoker Alcohol intake: never Lack of Transportation: No Lack of Food: Never True Current Housing: I Have Housing Concerned About Future Housing: No Difficulty Paying Gas/Electric Bills: No Difficulty Paying for Meds: No Currently Unemployed: No Education: High School Diploma/GED Difficulty w/ Childcare or Family Care: No <Sarah Estrada APRN - Last Filed: 06/05/25 04:13> Exam 2 Narrative: GENERAL: Well appearing, obese, non-toxic, in no acute distress. HEAD: Normocephalic, atraumatic. NECK: Supple. No adenopathy, no masses. RESPIRATORY: Airway patent, respirations nonlabored at rest. Clear to auscultation bilaterally, no rales, rhonchi, wheezing. CARDIOVASCULAR: Regular rate and rhythm without murmurs, rubs, or gallops. Peripheral pulses 2+ and equal bilaterally. ABDOMINAL: Soft, nontender, nondistended, no hepatosplenomegaly. Normoactive BS. MUSCULOSKELETAL: Moves all extremities. Strength/ROM intact without gross deformities. SKIN: Warm, dry, normal color. No rashes. NEURO: A&O X3. Speech clear. Cranial nerves II-XII intact. No ataxic movements. PSYCHIATRIC: Appropriate mood and affect. Normal interaction. <Sarah Estrada APRN - Last Filed: 06/05/25 04:13> Course TERRAZZO ROLLER/PA Physician Supervision This visit was performed by both a physician and an APC. I performed all aspects of the MDM as documented. <Don Dillard DO - Last Filed: 06/05/25 07:09> Vital Signs Vital signs: Vital Signs Temperature 98.2 F 06/04/25 20:29 Pulse Rate 77 06/04/25 20:29 Respiratory Rate 22 H 06/04/25 20:29 Blood Pressure 161/87 H 06/04/25 20:29 Pulse Oximetry 99 06/04/25 20:29 Oxygen Delivery Room Air 06/04/25 20:29 Temperature 98.0 F 06/05/25 00:10 Pulse Rate 71 06/05/25 00:10 Respiratory Rate 22 H 06/05/25 00:10 Blood Pressure 147/77 H 06/05/25 00:10 Pulse Oximetry 95 06/05/25 00:10 Oxygen Delivery Room Air 06/05/25 00:10 <Sarah Estrada, BAKER OPERATOR [employer] - Last Filed: 06/05/25 04:13> Vital Signs Temperature 98.2 F 06/04/25 20:29 Pulse Rate 77 06/04/25 20:29 Respiratory Rate 22 H 06/04/25 20:29 Blood Pressure 161/87 H 06/04/25 20:29 Pulse Oximetry 99 06/04/25 20:29 Oxygen Delivery Room Air 06/04/25 20:29 Temperature 98.0 F 06/05/25 00:10 Pulse Rate 71 06/05/25 00:10 Respiratory Rate 22 H 06/05/25 00:10 Blood Pressure 147/77 H 06/05/25 00:10 Pulse Oximetry 95 06/05/25 00:10 Oxygen Delivery Room Air 06/05/25 00:10 <Don Dillard DO - Last Filed: 06/05/25 07:09> MDM MDM Narrative Medical decision making narrative: Patient is 60-year-old male who presents to the ER with concerns of elevated blood pressure, lightheadedness, mild shortness of breath, dizziness, and visual changes. He reports his symptoms started a couple of days ago. Patient denies any headache, lower extremity swelling, or chest pain. He endorses a history of sleep apnea, asthma, testosterone shots, and high blood pressure. Labs Ordered: CBC, CMP, troponin, UDS, UA, PTT, INR, lipase, D-dimer, proBNP Imaging Ordered: Chest x-ray, CT brain, CTA brain/carotid Medications Ordered: None necessary Results: Patient's head CT scan indicates no evidence of acute intracranial abnormality. No ICH, mass effect or edema. No skull fracture. Vertebrobasilar dolichoectasia Patient's chest x-ray indicates bibasilar atelectasis and/or infiltrate. No pleural effusion or pneumothorax. MDM: Results of initial CT brain scan shared with patient and his . It was advised patient receive a CTA of his brain and carotid arteries for further evaluation. Patient has chosen to refuse further care. Risks of an incomplete evaluation and treatment were discussed with the patient, including potential for or permanent disability. Patient seems to understand these risks, but still desires to refuse further care. Patient recommended to follow up with PCP in the next possible interval. Specifically, patient was told they can return to the ED at any time to resume care. <Sarah Estrada APRN - Last Filed: 06/05/25 04:13> Differential Diagnosis Differential Diagnosis: CVA, vertigo, pulmonary embolus <Sarah Estrada APRN - Last Filed: 06/05/25 04:13> Lab Data [facility] Lab Attestation statement: I personally reviewed the patient's lab results. <Sarah Estrada APRN - Last Filed: 06/05/25 04:13> Result diagrams: 06/05/25 00:30 06/05/25 00:30 <Sarah Estrada APRN - Last Filed: 06/05/25 04:13> Labs: Lab Results 06/05/25 Range/Units 00:30 WBC 12.0 H (4.5-10.0) K/mm3 RBC 5.78 (4.6-6.20) M/mm3 Hgb 16.7 (14.0-18.0) g/dL Hct 49.9 (42.0-52.0) % MCV 86.3 (80-100) fl MCH 28.9 (26-34) pg MCHC 33.5 (32-36) g/dl RDW 14.2 (11.5-14.5) % Plt Count 135 L (150-375) k/mm3 MPV 9.7 (7.4-10.4) fl Immature Gran % (Auto) 0.3 (0-0.5) % Neut % (Auto) 64.3 (45.5-73.1) % Lymph % (Auto) 25.7 (18.3-44.2) % [place] % (Auto) 7.5 (2.6-8.5) % Eos % (Auto) 1.8 (0-4.4) % Baso % (Auto) 0.4 (0.2-1.2) % Lymph # (Auto) 3.09 (0.9-3.2) K/mm3 [place] # (Auto) 0.9 H (0.1-0.6) K/mm3 Eos # (Auto) 0.2 (0-0.3) K/mm3 Baso # (Auto) 0.1 (0.0-0.1) K/mm3 Abs Immat Gran (auto) 0.04 H (0.00-0.031) K/mm3 Absolute Neuts (auto) 7.7 H (1.3-6.7) K/mm3 Absolute Nucleated RBC 0.000 (0.0-0.012) K/mm3 Nucleated RBC % 0.0 (0.0-0.2) % PT 14.5 (11.1-14.7) Seconds INR 1.1 APTT 27.3 (22.3-36.8) Seconds D-Dimer 0.27 (<0.48) ug/mL Sodium 136 L (137-145) mmol/L Potassium 4.0 (3.4-5.0) mmol/L Chloride 106 (98-107) mmol/L Carbon Dioxide 25 (22-30) mmol/L Anion Gap 5 (4-12) mmol/L BUN 21 H (9-20) mg/dL Creatinine 0.95 (0.7-1.3) mg/dL Estim Creat Clear Calc 100 ml/min Estimated GFR > 60 (59 - ) Glucose 104 (65-110) mg/dL Calcium 9.0 (8.4-10.2) mg/dL Total Bilirubin 0.7 (0.2-1.3) mg/dL AST 21 (17-59) U/L ALT 31 (6-50) U/L Alkaline Phosphatase 64 (38-126) U/L Troponin I < 0.012 (0.000-0.034) ng/mL NT-Pro-B Natriuret Pep 35 (19.9-100) pg/mL Total Protein 7.1 (6.3-8.2) g/dL Albumin 4.3 (3.5-5.1) g/dL Lipase 93 (23-300) U/L Urine Color Yellow (Yellow) Urine Appearance Clear (Clear) Urine pH 6.5 (5.0-9.0) Ur Specific [place] 1.022 (1.001-1.035) Urine Protein Negative (Negative) mg/dL Urine Glucose (UA) Negative (Negative) mg/dL Urine Ketones Negative (Negative) mg/dL Ur Blood (Man) Negative (Negative) Urine Nitrate Negative (Negative) Urine Bilirubin Negative (Negative) Urine Urobilinogen 1.0 (<2.0) mg/dL Leukocyte Esterase Rfl Negative (Negative) AMALIA/UL Urine Opiates Screen Negative (Negative) Urine Methadone Screen Negative (Negative) Ur Barbiturates Screen Negative (Negative) Ur Phencyclidine Scrn Negative (Negative) Ur Amphetamine Screen Negative (Negative) U Benzodiazepines Scrn Negative (Negative) Urine Cocaine Screen Negative (Negative) U Cannabinoids Screen Positive A (Negative) <Sarah Estrada, BAKER OPERATOR AUTOMATIC - Last Filed: 06/05/25 04:13> Lab Results 06/05/25 Range/Units 00:30 WBC 12.0 H (4.5-10.0) K/mm3 RBC 5.78 (4.6-6.20) M/mm3 Hgb 16.7 (14.0-18.0) g/dL Hct 49.9 (42.0-52.0) % MCV 86.3 (80-100) fl MCH 28.9 (26-34) pg MCHC 33.5 (32-36) g/dl RDW 14.2 (11.5-14.5) % Plt Count 135 L (150-375) k/mm3 MPV 9.7 (7.4-10.4) fl Immature Gran % (Auto) 0.3 (0-0.5) % Neut % (Auto) 64.3 (45.5-73.1) % Lymph % (Auto) 25.7 (18.3-44.2) % [place] % (Auto) 7.5 (2.6-8.5) % Eos % (Auto) 1.8 (0-4.4) % Baso % (Auto) 0.4 (0.2-1.2) % Lymph # (Auto) 3.09 (0.9-3.2) K/mm3 [place] # (Auto) 0.9 H (0.1-0.6) K/mm3 Eos # (Auto) 0.2 (0-0.3) K/mm3 Baso # (Auto) 0.1 (0.0-0.1) K/mm3 Abs Immat Gran (auto) 0.04 H (0.00-0.031) K/mm3 Absolute Neuts (auto) 7.7 H (1.3-6.7) K/mm3 Absolute Nucleated RBC 0.000 (0.0-0.012) K/mm3 Nucleated RBC % 0.0 (0.0-0.2) % PT 14.5 (11.1-14.7) Seconds INR 1.1 APTT 27.3 (22.3-36.8) Seconds D-Dimer 0.27 (<0.48) ug/mL Sodium 136 L (137-145) mmol/L Potassium 4.0 (3.4-5.0) mmol/L Chloride 106 (98-107) mmol/L Carbon Dioxide 25 (22-30) mmol/L Anion Gap 5 (4-12) mmol/L BUN 21 H (9-20) mg/dL Creatinine 0.95 (0.7-1.3) mg/dL Estim Creat Clear Calc 100 ml/min Estimated GFR > 60 (59 - ) Glucose 104 (65-110) mg/dL Calcium 9.0 (8.4-10.2) mg/dL Total Bilirubin 0.7 (0.2-1.3) mg/dL AST 21 (17-59) U/L ALT 31 (6-50) U/L Alkaline Phosphatase 64 (38-126) U/L Troponin I < 0.012 (0.000-0.034) ng/mL NT-Pro-B Natriuret Pep 35 (19.9-100) pg/mL Total Protein 7.1 (6.3-8.2) g/dL Albumin 4.3 (3.5-5.1) g/dL Lipase 93 (23-300) U/L Urine Color Yellow (Yellow) Urine Appearance Clear (Clear) Urine pH 6.5 (5.0-9.0) Ur Specific [place] 1.022 (1.001-1.035) Urine Protein Negative (Negative) mg/dL Urine Glucose (UA) Negative (Negative) mg/dL Urine Ketones Negative (Negative) mg/dL Ur Blood (Man) Negative (Negative) Urine Nitrate Negative (Negative) Urine Bilirubin Negative (Negative) Urine Urobilinogen 1.0 (<2.0) mg/dL Leukocyte Esterase Rfl Negative (Negative) AMALIA/UL Urine Opiates Screen Negative (Negative) Urine Methadone Screen Negative (Negative) Ur Barbiturates Screen Negative (Negative) Ur Phencyclidine Scrn Negative (Negative) Ur Amphetamine Screen Negative (Negative) U Benzodiazepines Scrn Negative (Negative) Urine Cocaine Screen Negative (Negative) U Cannabinoids Screen Positive A (Negative) <Don Dillard DO - Last Filed: 06/05/25 07:09> Imaging Data Attestation: I personally reviewed and interpreted this imaging study as follows: < Sarah Estrada, QUAN - Last Filed: 06/05/25 04:13> Radiologist's impression: ITS Impressions Head CT 06/05/25 06:12 IMPRESSION: 1. No acute intracranial findings. Chest X-Ray 06/05/25 06:15 IMPRESSION: 1. No acute cardiopulmonary findings. Head/Neck CTA 06/05/25 07:01 IMPRESSION: 1. Mild nonspecific cerebral white matter disease, which likely represents chronic small vessel ischemic disease. 2. No aneurysm or significant intracranial canal stenosis. 3. 0% stenosis of the proximal internal carotid arteries relative to normal distal artery lumen diameters (NASCET criteria). Patient's head CT scan indicates no evidence of acute intracranial abnormality. No ICH, mass effect or edema. No skull fracture. Vertebrobasilar dolichoectasia Patient's chest x-ray indicates bibasilar atelectasis and/or infiltrate. No pleural effusion or pneumothorax. Patient's CTA indicates no acute occlusion, severe stenosis, or aneurysm. No dissection. <Sarah Estrada APRN - Last Filed: 06/05/25 04:13> ITS Impressions Head CT 06/05/25 06:12 IMPRESSION: 1. No acute intracranial findings. Chest X-Ray 06/05/25 06:15 IMPRESSION: 1. No acute cardiopulmonary findings. Head/Neck CTA 06/05/25 07:01 IMPRESSION: 1. Mild nonspecific cerebral white matter disease, which likely represents chronic small vessel ischemic disease. 2. No aneurysm or significant intracranial canal stenosis. 3. 0% stenosis of the proximal internal carotid arteries relative to normal distal artery lumen diameters (NASCET criteria). <Don Dillard DO - Last Filed: 06/05/25 07:09> Discharge Plan Discharge Clinical Impression: Headache, Dizziness, Shortness of breath <Sarah Estrada APRN - Last Filed: 06/05/25 04:13> Patient Disposition: Left Against Medical Advice <Sarah Estrada APRN - Last Filed: 06/05/25 04:13> Condition: Guarded Prognosis <Sarah Estrada APRN - Last Filed: 06/05/25 04:13> Patient Language: Albanian <Sarah Estrada APRN - Last Filed: 06/05/25 04:13> Prescriptions: No Action losartan 100 mg tablet 100 mg PO DAILY fluticasone propionate [Flonase Allergy Relief] 50 mcg/actuation spray,suspension 2 spray intranasal DAILY Qty: 48 4RF Rx Instructions: administer into each nostril 2 puffs each nostril q.h.s. azelastine 137 mcg (0.1 %) spray,non-aerosol 2 spray intranasal Q12H Qty: 90 3RF Rx Instructions: administer into each nostril q.h.s. p.r.n. nasal obstruction albuterol sulfate 90 mcg/actuation HFA aerosol inhaler 1 puff inhalation Q4H PRN buspirone 10 mg tablet 10 mg PO BID bupropion HCl 300 mg tablet extended release 24 hr 300 mg PO QAM trazodone 50 mg tablet 50 mg PO QHS PRN rosuvastatin 20 mg tablet 20 mg PO DAILY tadalafil 20 mg tablet fexofenadine-pseudoephedrine [Mariama-D 24 Hour] 180-240 mg tablet extended release 24 hr See Rx Instructions .ROUTE .COMPLEX Qty: 14 0RF Dose Instruction: Take 1 tablet by mouth every other day. Rx Instructions: Take 1 tablet by mouth every other day. <Sarah Estrada APRN - Last Filed: 06/05/25 04:13> Follow-up/Referrals: Kristina,José Roberts MD [Primary Care Provider, Unknown] <Sarah Estrada APRN - Last Filed: 06/05/25 04:13>
--- NOTE | 2025-06-05 | ECG_ITS ---
Test Date: 2025-06-05 00:10:10 Measurements Intervals [place] Rate: 71 P: 17 AR: 185 QRS: -17 QRSD: 99 T: 31 QT: 363 QTc: 395 Interpretive Statements SINUS RHYTHM DELAYED PRECORDIAL R/S TRANSITION VOLTAGE CRITERIA FOR LVH BORDERLINE ECG No previous ECG available for comparison Electronically Signed On 06-05-2025 08:07:40 COMMUNICATION STUDIES PROFESSOR by Tristen Strong D.O.
[2025-06-05 00:10] VITALS: BP 147/77; PULSE 71; RESP 22; TEMP 36.7; O2SAT 95
--- OUTSIDE RECORDS SUMMARY | 2025-06-05 00:24 | XMS_ITS | Clinical Summary ---
Author Organization [facility] [address] Address [address] [place] [address] Care Team Providers Care Supervisor Packing Room Name Role Phone Raghu Ramos MD Unavailable José Acevedo MD Primary Care Provider Allergies No known active allergies Medications buPROPion XL (WELLBUTRIN XL) 300 mg 24 hr tablet Take 1 tablet (300 mg total) by mouth daily Active ascorbic acid (VITAMIN C) 1,000 mg tablet Take 1 tablet (1,000 mg total) by mouth daily Active cholecalciferol (VITAMIN D-3) 54349 unit capsule Take 1 capsule (10,000 Units total) by mouth daily Active acetaminophen (TYLENOL) 500 mg tablet Take 1 tablet (500 mg total) by mouth every 6 (six) hours as needed Active testosterone cypionate (DEPO-TESTOTERONE ) 200 mg/mL injection Inject 1 mL (200 mg total) into the muscle as instructed every 28 (twenty-eight) days 1 2 Active zinc 50 mg tablet Take 50 mg by mouth daily Active omeprazole (PriLOSEC) 20 mg capsule Take 1 capsule (20 mg total) by mouth daily as needed Active busPIRone (BUSPAR) 7.5 mg tablet Take 1 tablet (7.5 mg total) by mouth 2 (two) times a day 2 Active losartan (COZAAR) 50 mg tabletIndications :Dyspnea and respiratory abnormalities,Niesha brock hypertension Take 1 tablet (50 mg total) by mouth daily 90 tablet 3 2 Active fluticasone propionate (FLONASE) 50 mcg/actuation nasal spray 3 Active amLODIPine (NORVASC) 5 mg tablet Take 1 tablet (5 mg total) by mouth daily 3 Active traZODone (DESYREL) 50 mg tablet Take 1 tablet (50 mg total) by mouth nightly 3 Active rosuvastatin (CRESTOR) 40 mg tablet Take 1 tablet (40 mg total) by mouth daily 3 Active azelastine (ASTELIN) 137 mcg (0.1 %) nasal spray USE 1 SPRAY(S) IN EACH NOSTRIL EVERY 12 HOURS 3 Active cyclobenzaprine (FLEXERIL) 10 mg tabletIndications :Lumbar sprain, initial encounter Take 1 tablet (10 mg total) by mouth 2 (two) times a day as needed for muscle spasms 30 tablet 1 3 Active naproxen (NAPROSYN) 500 mg tabletIndications :Lumbar sprain, initial encounter Take 1 tablet (500 mg total) by mouth 2 (two) times a day as needed for pain (pain) 30 tablet 1 3 Active montelukast (SINGULAIR) 10 mg tabletIndications :Seasonal allergic rhinitis due to other allergic trigger Take 1 tablet (10 mg total) by mouth nightly 30 tablet 3 Active albuterol HFA (PROVENTIL HFA,VENTOLIN HFA,PROAIR HFA) 90 mcg/actuation inhalerIndication s:Severe persistent asthma with acute exacerbation (HCC) Inhale 2 puffs every 6 (six) hours as needed for wheezing or shortness of breath 18 g 3 3 Active Mariama-D 24 Hour 180-240 mg per 24 hr tablet 0 3 Active BD Regular Bevel [place] 21 gauge x 1 / needle 3 Active sildenafiL (VIAGRA) 100 mg tablet 3 Active syringe, disposable, 3 mL syringe 3 Active vardenafiL (LEVITRA) 10 mg tablet [address] (VOLTAREN) 75 mg EC tablet 5 Active tadalafiL (ADCIRCA) 10 mg tablet 5 Active inhalational spacing device (Mesfinber Bridget [facility]) spacerIndications :Severe persistent asthma without complication (HCC),Chronic bronchitis, simple (HCC) 1 Device daily 1 each 5 Active budesonide-glycop yr-formoterol (BREZTRI) 160-9-4.8 mcg/actuation inhalerIndication s:Severe persistent asthma without complication (HCC),Chronic bronchitis, simple (HCC) Inhale 2 puffs 2 (two) times a day 10.7 g 3 5 Active tezepelumab-ekko (Tezspire) 210 mg/1.91 mL (110 mg/mL) pen injector Inject 210 mg under the skin every 28 (twenty-eight) days 1.91 mL 11 5 Active tezepelumab-ekko (Tezspire) 210 mg/1.91 mL (110 mg/mL) pen injector Inject 210 mg under the skin every 28 (twenty-eight) days 1.91 mL 3 5 Active Active Problems Problem Noted Date Diagnosed Date BMI 40.0-44.9, adult 11/06/2022 Cigarette nicotine dependence in remission 11/06 Shift work sleep disorder 11/06/2022 Pure hypertriglyceridemia 04/06/2022 Morbid obesity 04/06/2022 Asthma 12/22/2021 Dyspnea and respiratory abnormalities 12/22/2021 MARIO (obstructive sleep apnea) 12/22/2021 Overview (12/22/2021): Uses CPAP nightly Shoulder pain 12/22/2021 Low back pain 12/22/2021 GERD (gastroesophageal reflux disease) 2 Erectile dysfunction 12/22/2021 Anxiety 12/22/2021 Trapezius strain, left, subsequent encounter 12/2020 Insomnia 07/08/2020 Depressive disorder 07/08/2020 Current tear of medial cartilage or meniscus of knee 07/08/2020 Cervical pain 07/08/2020 Abnormal EKG 05/04/2020 Elevated fasting glucose 01/26/2020 Hypogonadism in male 01/15/2020 Obesity (BMI 35.0-39.9 without comorbidity) 08/2019 Polyp of colon 09/09/2019 Arthritis 05/27/2019 Pleurodynia 11/01/2015 Overweight 11/01/2015 Glucose intolerance 11/01/2015 Primary hypertension 11/01/2015 Hypercholesteremia 11/01/2015 Encounters Date Type Department Care Team Description 04/07/2025 Telephone [facility] Pulmonology [address] [place] [address] Anay Naqvi MA from Last 3 Months Medical History Medical History Date Comments Hypertension High cholesterol Depression Anxiety Family History Medical History Relation Name Comments Liver cancer Father COPD Sister Hypertension Sister Heart attack Neg Hx Relation Name Status Comments Child Alive Father Mother Alive Sister Alive Social History Tobacco Use Types Packs/Day Years Used Date Smoking Tobacco: Former Cigars Smokeless Tobacco: Never Tobacco Cessation:Counseling Given: Not Answered AUDIT-C Answer Date Recorded Q1: How often do you have a drink containing alc ohol? Monthly or less 01/15/2023 Q2: How many drinks containi ng alcohol do you have on a typical day when you are drinking? 1 or 2 01/15/2023 Q3: How often do you have si x or more drinks on one occasion? 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 Gender Identity Male 05/04/2022 12:22 PM CDT Sexual Orientation Not on file Last Filed Vital Signs Vital Sign Reading Time Taken Comments Blood Pressure 151/92 10/20/2024 10:56 AM CDT Pulse 82 10/20/2024 10:56 AM CDT Temperature 36.5 C (97.7 F) 10/20/2024 10:56 AM CDT Respiratory Rate 20 10/20/2024 10:56 AM CDT Oxygen Saturation 97% 10/20/2024 10:56 AM CDT Inhaled Oxygen Concentration - - Weight 134 kg (295 lb 6.4 oz) 10/20/2024 10:56 A M CDT Height 177.8 cm (5' 10) 10/20/2024 10:56 AM CDT Body Mass Index 42.39 10/20/2024 10:56 AM CDT Plan of Treatment Health Maintenance Due Date Last Done Comments Colon Cancer Screening-Colonoscopy 1966 Depression Screening 1966 Hepatitis C Screening 1966 Prostate Cancer Screening-PSA 1966 Hepatitis B Screening 01/28/1984 Regular Well Visit/Exam 18-64 01/28/1984 Pneumococcal vaccine <65 (1 of 2 - PCV) 1985 Covid-19 Vaccine (5 - 2024-2 6 season) 2025 03/16/2022, 05/16/2021, 10/04/2020, Additional history exists Influenza Vaccine (#1) 2025 , 03/14/2021, 03/13/2020, Additional history exists DTaP/Tdap/Td Vaccine (3 - Td or Tdap) 12/31/2029 01/01/2020, 03/25/2014 Zoster Vaccine Completed 03/09/2020, 01/01/2020 [facility] Care Teams Supervisor Packing Room Relationship Specialty Start Date End Date José Acevedo MD [address] [place] [address] PCP - General Family Medicine 05/25/23 Raghu Ramos MD Consulting Physician Cardiology 09/02/21
--- OUTSIDE RECORDS SUMMARY | 2025-06-05 00:24 | XMS_ITS | Encounter Summary ---
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
--- OUTSIDE RECORDS SUMMARY | 2025-06-05 00:24 | XMS_ITS | Clinical Summary ---
Author Organization [facility] [employer] Address [address] [facility] [place] [address] Care Team Providers Care Project Controls Specialist Name Role Phone Unavailable Primary Care Provider Unavailabl e Social History Tobacco Use Types Packs/Day Years Used Date Smoking Tobacco: Never Assessed Sex and Gender Information Value Date Recorded Sex Assigned at Not on file Legal Sex Male 11:59 AM EST Gender Identity Not on file Sexual Orientation Not on file Plan of Treatment Health Maintenance Due Date Last Done Comments Colorectal Cancer: COLONOSCO PY Screening every 10 yrs (or Modifier) 1966 Depression: Screening Annual ly using PHQ-2/9 in Adults 18 yrs or above (or HM Modifier)([facility]) 01/28/1984 Hepatitis C Virus Infection in Adolescents and Adults: Screening (or Modifier) ([facility]) 01/28/1984 SDAR Screening Reminder: Mima barrientos for all adults ([facility]) 01/28/1984 Tobacco Smoking Cessation: i n Adults excluding Women: Behavioral and Pharmacotherapy Interventions ([facility]) 01/28/1984 DTaP/Tdap/Td Vaccines ([facility]) (1 - Tdap) 1985 Colorectal Cancer Screening 45 -75 Yrs (or HM Modifier ) 2011 Colorectal Cancer: FLEXIBLE SIGMOIDOSCOPY Screening every 5 yrs 2011 Colorectal Cancer: Fecal Imm unochemical Test (FIT) Annually [place] 2011 Colorectal Cancer: High-sens itivity gFOBT Screening Annually [facility] 2011 Colorectal Cancer: Stool Col oguard Screening every 3 yrs 2011 Colorectal Cancer:CT Colonography Screening every 5 yr s 2011 Pneumococcal Vaccination Scr eening: Patients 50+ yrs of age ([facility]) (1 of 1 - PCV) 01/28/2016 Zoster/Shingles Vaccine Seri es Screening: Adults aged 18+ yrs (or HM Modifiers)([facility]) (1 of 2) 01/28/2016 Flu Vaccination: Yearly for ages 18mos through 64 years (or Modifier)([facility] ) 01/30/2025 COVID-19 Vaccine Screening: Initial Series and Booster Status ([facility]) (2024- season) 2025 Medical Devices Not on file Insurance [employer]
--- OUTSIDE RECORDS SUMMARY | 2025-06-05 00:24 | XMS_ITS | Clinical Summary ---
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 Gender Identity Not on file Sexual Orientation Not on file Plan of Treatment Health Maintenance Due Date Last Done Comments Colorectal Cancer Screening Colonoscopy (10 Years) 1966 Annual Physical 1969 Hepatitis C 01/28/1984 DTaP, Tdap and Td Vaccines ( 1 - Tdap) 1985 Pneumococcal Vaccine: 50+ Ye ars (1 of 1 - PCV) 01/28/2016 Zoster Vaccines (1 of 2) 01/28/2016 COVID-19 Vaccine ( - 2024-2 6 season) 2025 Influenza Adult (#1) 2025 Hepatitis A Vaccines Aged Out No long er eligible based on patient's age to complete this topic Meningococcal B Vaccine Aged Out No l onger eligible based on patient's age to complete this topic Meningococcal Vaccine Aged Out No chrissie franco eligible based on patient's age to complete this topic RSV Immunizations Under 20 Months Aged Out No longer eligible based on patient's age to complete this topic Insurance [employer] Care Teams Caseworker Protective Services Relationship Specialty Start Date End Date Anjali Perez, SEWER TAPPER- [address] [place] [address] PCP - General NURSE PRACTITIONER 01/30/25
--- OUTSIDE RECORDS SUMMARY | 2025-06-05 00:24 | XMS_ITS | Clinical Summary ---
Author Organization [facility] Address [address] [place] [address] Care Team Providers Care Provider Service Representative Name Role Phone Unavailable Primary Care Provider Unavailabl e Source Comments [facility],non-owned Affiliates and Associated Physician Practices is amultiple site organization consisting of ambulatory clinics and hospital sitesin [place], [place], [place] and [place]. This disclosure is being madepursuant to the Care Everywhere program and may not contain all information available regarding this patient. Last updated 18.[facility] Allergies No known active allergies Medications * Be aware that medications may not be up to date on this document. Alwaysverify current medications with the patient. FLUOXETINE HCL PO 40 mg Active atorvastatin (LIPITOR) 10 MG tablet atorvastatin 10 mg tablet TAKE 1 TABLET BY MOUTH EVERY DAY Active fluticasone-eduardo meterol (ADVAIR DISKUS) 250-50 MCG/DOSE inhaler Advair Diskus 250 mcg-50 mcg/dose powder for inhalation Active lisinopril (PRINIVIL; ZESTRIL) 40 MG tablet lisinopril 40 mg tablet TAKE 1 TABLET BY MOUTH EVERY DAY Active tadalafil (CIALIS) 5 MG tablet tadalafil 5 mg tablet Active omeprazole (PRILOSEC) 20 MG capsule Take 1 (one) capsule by mouth once daily 30 capsule 2 Active Immunizations Immunization Administration Dates Next Due INFLUENZA VACCINE, QUADR. (F LUZONE; FLULAVAL; FLUARIX; AFLURIA QUADRIVALENT; 6MO+), 0.5 ML (IIV4) 03/27/2017 Social History Tobacco Use Types Packs/Day Years Used Date Smoking Tobacco: Never Smokeless Tobacco: Never Sex and Gender Information Value Date Recorded Sex Assigned at Not on file Legal Sex Male 6:05 AM SHIP/REC/DOC CONTROL Gender Identity Not on file Sexual Orientation Not on file Last Filed Vital Signs Vital Sign Reading Time Taken Comments Blood Pressure 144/97 11/29/2021 3:59 PM CDT Pulse 101 11/29/2021 3:59 PM CDT Temperature 36.6 C (97.8 F) 11/29/2021 3:59 PM CDT Respiratory Rate 16 11/29/2021 3:59 PM CDT Oxygen Saturation 98% 11/29/2021 3:59 PM CDT Inhaled Oxygen Concentration - - Weight 120.2 kg (265 lb) 11/29/2021 3:59 PM CDT Height 177.8 cm (5' 10) 11/29/2021 3:59 PM CDT Body Mass Index 38.02 11/29/2021 3:59 PM CDT Plan of Treatment Health Maintenance Due Date Last Done Comments COLOGUARD (AGES 45-75) - COLON CA SCREENING 1966 COLON MONITORING 1966 COLONOSCOPY - COLON CA SCREENING 1966 CT COLONOGRAPHY - COLON CA SCREENING 1966 Colorectal Cancer Screening 1966 FIT - COLON CA SCREENING 1966 FLEX SIG - COLON CA SCREENING 1966 HIV SCREENING 1981 HEPATITIS C SCREENING 01/23/1984 DTAP/TDAP/TD VACCINES (1 - Tdap) 1985 HEPATITIS B VACCINE (1 of 3 - 19+ 3-dose series) 1985 PNEUMOCOCCAL VACCINE 50+ (1 of 1 - PCV) 01/28/2016 ZOSTER VACCINE (1 of 2) 01/28/2016 DEPRESSION SCREENING 07/02/2024 SCREENING FOR DIABETES 11/29/2024 11/29/2021 COVID-19 VACCINE ( season) 2025 05/16/2021, 10/04/2020, 09/07/2020 INFLUENZA VACCINE (#1) 2025 , 03/13/2020, 03/11/2020, Additional history exists HIB VACCINE Aged Out No longer eligi ble based on patient's age to complete this topic HPV VACCINE Aged Out No longer eligi ble based on patient's age to complete this topic MENINGOCOCCAL (Group B) VACCINE SHARED DECISION-MAKING Aged Out No longer eligible based on patient's age to complete this topic MENINGOCOCCAL GROUPS A/C/Y/W VACCINE Aged Out No longer eligible based on patient's age to complete this topic Procedures Procedure Name Priority Date/Time Associated Diagnosis Comments COMPREHENSIVE METABOLIC PANEL STAT 11/29/2021 4:00 PM CDT from Last 3 Months or Most Recently Relevant to Health Maintenance Results * (ABNORMAL) COMPREHENSIVE METABOLIC PANEL (11/29/2021 4:00 PM CDT) Glucose 95 70 - 105 mg/dL 11/29/2021 4:26 PM CDT [facility] Sodium 138 136 - 145 mmol/L 11/29/2021 4:26 PM CDT [facility] Potassium 4.2 3.5 - 5.1 mmol/L 11/29/2021 4:26 PM CDT [facility] Chloride 110(H) 98 - 107 mmol/L 11/29/2021 4:26 PM CDT [facility] CO2 22(L) 23 - 31 mmol/L 11/29/2021 4:26 PM CDT [facility] Calcium 8.3(L) 8.4 - 10.4 mg/dL 11/29/2021 4:26 PM CDT [facility] Anion Gap 6(L) 8 - 18 mmol/L 11/29/2021 4:26 PM CDT [facility] BUN 18 8.4 - 25.7 mg/dL 11/29/2021 4:26 PM CDT [facility] Creatinine 0.87 0.72 - 1.25 mg/dL 11/29/2021 4:26 PM CDT [facility] Alkaline Phosphatase 59 40 - 150 U/L 11/29/2021 4:26 PM CDT [facility] ALT 18 0 - 61 U/L 11/29/2021 4:26 PM CDT [facility] AST 15 5 - 34 U/L 11/29/2021 4:26 PM CDT [facility] Protein Total 6.6 6.4 - 8.3 gm/dL 11/29/2021 4:26 PM CDT [facility] Albumin 4.0 3.5 - 5.2 gm/dL 11/29/2021 4:26 PM CDT [facility] Bilirubin Total 0.6 0.2 - 1.2 mg/dL 11/29/2021 4:26 PM CDT [facility] eGFR by CKD-EPI >90 >=90 mL/min/1.7 3 m2 11/29/2021 4:26 PM CDT [facility] Blood BLOOD SPECIMEN / Unknown Venipuncture / Unknown 11/29/2021 4:00 PM CDT 11/29/2021 4:09 PM CDT Heriberto Andrew MD LAB - CHEMISTRY ORDERABLES Joaquina adame Result [facility] [address] [place] [address] from Last 3 Months or Most Recently Relevant to Health Maintenance Insurance [facility]
[2025-06-05 00:37] LABS: Hematocrit 49.9 % (42.0-52.0); Hemoglobin 16.7 g/dL (14.0-18.0); Immature Granulocyte Percent A 0.3 % (0-0.5); Lymphocytes Absolute Auto 3.09 K/mm3 (0.9-3.2); Mean Corpuscular HGB Conc 33.5 g/dl (32-36); Mean Corpuscular Hemoglobin 28.9 pg (26-34); Mean Corpuscular Volume 86.3 fl (80-100); Nucleated Red Blood Cells Absolute Auto 0.000 K/mm3 (0.0-0.012); Nucleated Red Blood Cells Perc 0.0 % (0.0-0.2); Platelet Count Result 135 k/mm3 (150-375); Red Blood Count 5.78 M/mm3 (4.6-6.20); White Blood Count 12.0 K/mm3 (4.5-10.0)
[2025-06-05 00:42] LABS: Add Urine Microscopic? NO; Appearance Urine Clear (Clear); Glucose Urine UA Negative (Negative); Leukocyte Esterase Ur Negative LEU/UL (Negative); Nitrate Urine Negative (Negative); Specific Grav Ur 1.022 (1.001-1.035)
[2025-06-05 00:51] LABS: Alanine Aminotransferase 31 U/L (6-50); Albumin Level 4.3 g/dL (3.5-5.1); Alkaline Phosphatase 64 U/L (38-126); Anion Gap 5 mmol/L (4-12); Aspartate Amino Transferase 21 U/L (17-59); Bilirubin,Total 0.7 mg/dL (0.2-1.3); Blood Urea Nitrogen 21 mg/dL (9-20); Calcium 9.0 mg/dL (8.4-10.2); Carbon Dioxide 25 mmol/L (22-30); Chloride 106 mmol/L (98-107); Estimated CRCL calculation 100 ml/min; Estimated Glomerular Filt Rate > 60; Glucose 104 mg/dL (65-110); Lipase 93 U/L (23-300); Potassium 4.0 mmol/L (3.4-5.0); Sodium 136 mmol/L (137-145); Total Protein 7.1 g/dL (6.3-8.2)
[2025-06-05 00:52] LABS: INR 1.1; Partial Thromboplastin Time 27.3 Seconds (22.3-36.8); Prothrombin Time 14.5 Seconds (11.1-14.7)
[2025-06-05 00:59] LABS: Cannabinoid Screen Urine Positive (Negative)
[2025-06-05 01:02] LABS: NT Pro B Type Natriuretic Pept 35 pg/mL (19.9-100); Troponin I < 0.012 ng/mL (0.000-0.034)
== END 2025-06-05 03:59 | disposition left against medical advice (07) ==
PROVIDERS: Emergency Provider Registered Nurse; PCP Family Medicine
DX: R51.9 Headache, unspecified (principal); R42 Dizziness and giddiness; R06.02 Shortness of breath; E78.5 Hyperlipidemia, unspecified; I10 Essential (primary) hypertension; G47.33 Obstructive sleep apnea (adult) (pediatric); Z99.89 Dependence on other enabling machines and devices; J45.909 Unspecified asthma, uncomplicated
CPT/HCPCS: 36415; 70450; 70496; 70498; 71046; 80053; 80307; 81003; 83690; 83880; 84484; 85025; 85380; 85610; 85730; 93005; 99284; Q9967